=== PATIENT | male | born 1985 | race Caucasian/White ===

== ENCOUNTER 2018-07-15 01:04 | Observation (INO) | payer MEDICAID ==
[2018-07-15] MEDS ORDERED: SODIUM CHLORIDE FLUSH 0.9% 10 ML SYRINGE IVP PRN (03:22)
--- NOTE | 2018-07-15 04:01 | HISTORY & PHYSICAL EXAMINATION ---
Chief Complaint - Chief Complaint Chief Complaint: right lower extremity swelling pain and redness History of Present Illness - Admitted From Admitted From:: [facility] ED. Boyd - History Obtained From Records Reviewed: yes History obtained from: patient and chart - History of Present Illness HPI Comment/Other: Patient is a 33 y/o male who presented to the ED at [facility] with complain of leg swelling redness and pain. He reports that the house he was living in is infested with spiders. He woke up to ant crawling all over his legs 7 days ago. He brought one to the ED in a water bottle. He said he found it in his wound and that he has been bitten quite extensively by them. He decided to come in today because the swelling and redness got significantly worse and he was having a difficult time walking. He uses heroin and methamphetamine. He used to inject heroin in his legs but said he has not done so in 5 years. He smokes the drugs now and last did so 2 days ago. While in senior living, following an injection of heroin, he came down with a staph infection that resulted in an upon wound on the left leg which has increased in size and is now chronic. He had been referred to a wound center in [place] about 1 yr ago but did not follow up. He claims the wound on the right leg was a spread of infection from the left leg. He was positive for MRSA. In the ED today he has several round and raised areas he claims are bite sites. Some of the sites appear to have pustules. The entire leg is swollen and hyperemic and very tender to the slightest touch. The left leg also has round raise spots but the left leg is not tender to palpation. He reported a subjective fever but did not take his temperature at home and was afebrile in the ED. He was transferred to [facility] as a direct admit at the patient's request because he wants to be close to home. However he just recently move to the [place] and is yet to establish care with a provider on the [place]. He does not remember the name of his last PCP. he has not seem him in over 1 yr. He worked out of [facility] clinic in [place]. He is on methadone and reports taking 120mg daily. He gets it filled at [facility] in [place]. He drives to [place] regularly to get his medication refilled History - Past Medical History Cardiovascular: reports: Hypertension - Family & Social History Family History Comment/Other: mother: borderline DM. grand father: DM Living arrangement: At home - Substance History Use: Uses substance without health or social issues: Tobacco Abuse: Recurrent use of substance despite neg consequences: Amphetamine, Opioid Tobacco Details: Cigarettes (Smoked from 9 y/o to 16 y/o), Chewing Tobacco - POLST Patient has POLST: No POLST Status: Full Code Meds/Allgy - Allergies Allergies/Adverse Reactions: Allergies Allergy/AdvReac Type Severity Reaction Status Date / Time No Known Drug Allergies Allergy Verified 07/15/18 04:10 Review of Systems - Constitutional Constitutional: reports: Fever - Eyes Eyes: denies: Irritation, Amaurosis - Ears, Nose & Throat Ears, Nose & Throat: denies: Vertigo, Nasal pain, Nasal discharge, Sore throat - Cardiovascular Cariovascular: denies: Irregular heart rate, Palpitations, Chest pain, Edema, Lightheadedness, Exertional dyspnea - Respiratory Respiratory: denies: Cough, Wheezing, Snoring, Hemoptysis, SOB at rest, SOB with exertion - Gastrointestinal Gastrointestinal: denies: Abdominal pain, Abdominal distention, Constipation, Nausea, Vomiting - Musculoskeletal Musculoskeletal: denies: Muscle pain, Back pain, Muscle aches, Limited range of motion, Muscle weakness, Joint pain - Integumentary Integumentary: reports: Other (redness in lower ext swelling) - Neurological Neurological: denies: General weakness, Focal weakness, Headache, Dizziness - Psychiatric Psychiatric: denies: Depression, Anxiety - Endocrine Endocrine: denies: Polyuria, Polydypsia - Hematologic/Lymphatic Hematologic/Lymphatic: denies: Anemia, Bruising, Petechiae Prior Level of Functionality: Independent of activities of living Exam - Vital Signs Vital Signs: Vital Signs x48h Temp Pulse Resp BP Pulse Ox 07/15/18 03:00 36.3 C L 81 18 133/67 H 100 - Physical Exam General Appearance: positive: Alert, Moderate distress Eyes Bilateral: positive: Normal inspection, PERRL, EOMI, Conjunctivae nml, No scleral icterus ENT: positive: ENT inspection nml Neck: positive: Nml inspection, Thyroid nml, No JVD Respiratory: positive: Chest non-tender, No respiratory distress, Breath sounds nml. negative: Wheezes, Rales, Rhonchi Cardiovascular: positive: Regular rate & rhythm, No murmur, No gallop Abdomen: positive: Non-tender, No organomegaly, Nml bowel sounds, No distention. negative: Tenderness Back: positive: Nml inspection Skin: positive: Color nml, Warm, Other (open chronic wounds on bilateral lower ext raised red spots which look like postules) Extremities: positive: Pedal edema, Calf tenderness. negative: Non-tender Neurologic/Psychiatric: positive: Oriented x3, Motor nml, Sensation nml, Mood/affect nml Sepsis Event Note (H) - Evaluation Possible source of Sepsis: positive: Skin/soft tissue Conclusion/Plan - Problem List (1) Cellulitis of right lower extremity Conclusion/Plan: Hx of MRSA positive. Xray of bilateral lower extremity negative for fracture There was no fluctuance suggesting abscess Patient given vancomycin in the ED after blood culture drawn. Will continue. Pharmacy to dose. After about 2 day of IV antibiotic, may switch to oral antibiotics (2) Chronic wound of extremity Conclusion/Plan: Bilaterally Wound care consult placed Patient would need to follow with wound clinic outpatient (3) Hypertension Conclusion/Plan: Noncompliant Supposed to be on triamterene/HCTZ. Patient has not taken in over 1 yrs Will resume when verified (4) IVDU (intravenous drug user) Conclusion/Plan: Uses heroin and methamphetamine. Last used intravenously about 5 yrs ago Last smoked drugs 2 days ago On methadone, managed by [facility] in [place] Core Measures - Anticipated LOS I expect patient to be DC'd or transferred within 96 hours.: Yes - DVT/VTE - Prophylaxis VTE/DVT Device ordered at admit?: No Not Ordered - Medical Reason: Contraindicated (chronic open loer extremity wounds) VTE/DVT Prophylaxis med ordered at admit?: Yes
[2018-07-15] MEDS: ACETAMINOPHEN 325 MG TABLET PO PRN ×2 (04:13→21:33)
[2018-07-15] MEDS ORDERED: VANCOMYCIN PER PHARMACY 100 GM in SODIUM CHLORIDE 0.9% 250 ML IV SCH (05:00)
[2018-07-15 08:24] LABS: BASOPHILS # (AUTO) 0.1 10^3/uL (0.0-0.1); BASOPHILS % (AUTO) 0.9 %; EOSINOPHILS # (AUTO) 0.2 10^3/uL (0.0-0.7); EOSINOPHILS % (AUTO) 3.2 %; HGB - HEMOGLOBIN 10.2 g/dL (14.0-18.0); LYMPHOCYTES # (AUTO) 1.3 10^3/uL (1.5-3.5); LYMPHOCYTES % (AUTO) 22.6 %; MEAN CORPUSCULAR HEMOGLOBIN 25.5 pg (27.0-31.0); MEAN CORPUSCULAR HGB CONC 33.5 g/dL (32.0-36.0); MEAN CORPUSCULAR VOLUME 76.3 fL (80.0-94.0); MEAN PLATELET VOLUME 8.3 fL (7.4-11.4); MONOCYTES # (AUTO) 0.4 10^3/uL (0.0-1.0); MONOCYTES % (AUTO) 6.9 %; NEUTROPHILS # (AUTO) 3.8 10^3/uL (1.5-6.6); NEUTROPHILS % (AUTO) 66.4 %; PLT - PLATELET COUNT 215 10^3/uL (130-450); RED BLOOD COUNT 3.99 10^6/uL (4.70-6.10); RED CELL DISTRIBUTION WIDTH 16.5 % (12.0-15.0); WHITE BLOOD COUNT 5.7 x10^3/uL (4.8-10.8)
[2018-07-15 08:33] LABS: CALCIUM 8.1 mg/dL (8.5-10.3); CREATININE 0.7 mg/dL (0.6-1.2)
[2018-07-15] MEDS ORDERED: POTASSIUM CHLORIDE 20 MEQ TABLET PO ONE (08:45)
[2018-07-15] MEDS ORDERED: VANCOMYCIN INJ 2 GM in SODIUM CHLORIDE 0.9% 500 ML IV SCH (09:00)
[2018-07-15] MEDS ORDERED: SODIUM CHLORIDE FLUSH 0.9% 10 ML SYRINGE IVP SCH (09:00)
[2018-07-15 09:04] LABS: ALBUMIN 2.8 g/dL (3.2-5.5); BILIRUBIN,DIRECT 0.1 mg/dL (0.1-0.5); BILIRUBIN,TOTAL 0.6 mg/dL (0.2-1.0); MAGNESIUM 2.3 mg/dL (1.7-2.8)
[2018-07-15] MEDS: METHADONE 5 MG TABLET PO SCH (09:47)
[2018-07-15] MEDS: TRIAMT/HCTZ 37.5 MG/25 MG CAPSULE PO SCH (09:50)
[2018-07-15] MEDS: ENOXAPARIN 40 MG/0.4 ML SYRINGE SUBQ SCH (09:51)
[2018-07-15] MEDS: POLYETHYLENE GLYCOL 3350 17 GM PACKET PO SCH (09:51)
[2018-07-15] MEDS ORDERED: LIDOCAINE TOPICAL 4% 160 MG/4 ML KIT TOP PRN ×2 (11:00→13:43)
--- NOTE | 2018-07-15 12:23 | PROVIDER PROGRESS NOTE ---
Assessment/Plan - Problem List (1) Cellulitis of right lower extremity Assessment/Plan: Pt was put on iv Vanco, it is unclear if [facility] did blood or wound cultures. He has a Hx of MRS (+) status. Will continue po Vanco. Await Wound Clinic nurse to debride and give recommendations. (2) Chronic wound of extremity Assessment/Plan: He has bilateral leg wounds of different types and stages. Awaiting Wound Clinic nurse to see. (3) Leg edema Assessment/Plan: He has not taken his Triamptere for a year. Will resume Triampterene, especially with bilateral leg edema. (4) History of intravenous drug abuse Assessment/Plan: Pt was put on his usual dose of po Methadone, after it was confirmed and reconciled by our Pharmacist. (5) Methamphetamine use Assessment/Plan: Pt admits to Meth and Heroin smoking. Told to stop, needs drug rehab resources, I told Hydrodynamicist. (6) Hypokalemia Assessment/Plan: Replace po. Follow daily BMP. (7) Anemia Assessment/Plan: Will check B12, Folate, Iron panel and guiac stool. Replace if low. - Current Meds Current Meds: Current Medications Generic Name Dose Route Start Last Admin Trade Name Freq PRN Reason Stop Dose Admin Acetaminophen 650 mg 07/15/18 03:22 07/15/18 04:13 Tylenol PO 650 mg Q4HR PRN Administration Pain 1 to 4 Enoxaparin Sodium 40 mg 07/15/18 09:00 07/15/18 09:51 Lovenox SUBQ 40 mg DAILY EFE Administration Methadone HCl 120 mg 07/15/18 09:00 07/15/18 09:47 PO 120 mg DAILY EFE Administration Polyethylene Glycol 17 gm 07/15/18 09:00 07/15/18 09:51 Miralax PO 17 gm DAILY EFE Administration Triamterene/HCTZ 1 cap 07/15/18 09:00 07/15/18 09:50 Dyazide PO 1 cap DAILY EFE Administration - Lab Result Fish Bone Diagrams: 07/15/18 08:10 07/15/18 08:10 - Additional Planning My Orders: My Active Orders 07/15/18 CUL, MRSA SCREEN [RM] Urgent 07/15/18 09:00 Methadone 120 mg PO DAILY Triamterene/Hdyrochlor 37.5/25 [Dyazide] 1 cap PO DAILY 07/15/18 11:00 Lidocaine Topical 4% [Pkooed-V-Cdd Kit 4%] 1 mg TOP Q2H PRN 07/15/18 12:30 Vancomycin [Vancocin] 500 mg PO ONCE ONE 07/15/18 18:00 Vancomycin [Vancocin] 500 mg PO BID Subjective - Subjective Nursing Reports: Other (iv fell put after 1g of Vancomycin infused (half of the planned dose).) Objective Vital Signs: Vital Signs - 24 hr 07/15/18 07/15/18 03:00 07:38 Temperature 36.3 C L 36.6 C Heart Rate [ 81 72 Monitoring electrodes] Respiratory 18 18 Rate Blood Pressure 133/67 H 120/54 L [Right Brachial artery] O2 Saturation 100 100 Oxygen O2 Source Room air I&O (Last 24 Hrs): Intake and Output Totals x24h 07/13/18 07/14/18 07/15/18 23:59 23:59 23:59 Intake Total 1235 Output Total 2100 Balance -865 - Results Results: Laboratory Results WBC 5.7 x10^3/uL (4.8-10.8) 07/15/18 08:10 RBC 3.99 10^6/uL (4.70-6.10) L 07/15/18 08:10 Hgb 10.2 g/dL (14.0-18.0) L 07/15/18 08:10 Hct 30.4 % (42.0-52.0) L 07/15/18 08:10 MCV 76.3 fL (80.0-94.0) L 07/15/18 08:10 MCH 25.5 pg (27.0-31.0) L 07/15/18 08:10 MCHC 33.5 g/dL (32.0-36.0) 07/15/18 08:10 RDW 16.5 % (12.0-15.0) H 07/15/18 08:10 Plt Count 215 10^3/uL (130-450) 07/15/18 08:10 MPV 8.3 fL (7.4-11.4) 07/15/18 08:10 Neut # (Auto) 3.8 10^3/uL (1.5-6.6) 07/15/18 08:10 Lymph # (Auto) 1.3 10^3/uL (1.5-3.5) L 07/15/18 08:10 Mineral # (Auto) 0.4 10^3/uL (0.0-1.0) 07/15/18 08:10 Eos # (Auto) 0.2 10^3/uL (0.0-0.7) 07/15/18 08:10 Baso # (Auto) 0.1 10^3/uL (0.0-0.1) 07/15/18 08:10 Absolute Nucleated RBC 0.00 x10^3/uL 07/15/18 08:10 Nucleated RBC % 0.0 /100WBC 07/15/18 08:10 Sodium 138 mmol/L (135-145) 07/15/18 08:10 Potassium 3.4 mmol/L (3.5-5.0) L 07/15/18 08:10 Chloride 101 mmol/L (101-111) 07/15/18 08:10 Carbon Dioxide 29 mmol/L (21-32) 07/15/18 08:10 Anion Gap 8.0 (6-13) 07/15/18 08:10 BUN 10 mg/dL (6-20) 07/15/18 08:10 Creatinine 0.7 mg/dL (0.6-1.2) 07/15/18 08:10 Estimated GFR (MDRD) 129 (>89) 07/15/18 08:10 Glucose 119 mg/dL (70-100) H 07/15/18 08:10 Calcium 8.1 mg/dL (8.5-10.3) L 07/15/18 08:10 Magnesium 2.3 mg/dL (1.7-2.8) 07/15/18 08:10 Total Bilirubin 0.6 mg/dL (0.2-1.0) 07/15/18 08:10 Direct Bilirubin 0.1 mg/dL (0.1-0.5) 07/15/18 08:10 AST 29 IU/L (10-42) 07/15/18 08:10 ALT 27 IU/L (10-60) 07/15/18 08:10 Alkaline Phosphatase 93 IU/L (42-121) 07/15/18 08:10 Total Protein 7.0 g/dL (6.7-8.2) 07/15/18 08:10 Albumin 2.8 g/dL (3.2-5.5) L 07/15/18 08:10 Globulin 4.2 g/dL (2.1-4.2) 07/15/18 08:10 Sepsis Event Note (H) - Evaluation Possible source of Sepsis: positive: Skin/soft tissue
[2018-07-15] MEDS ORDERED: VANCOMYCIN 125 MG CAPSULE PO ONE (12:30)
[2018-07-15] MEDS ORDERED: VANCOMYCIN INJ 1.75 GM in SODIUM CHLORIDE 0.9% 500 ML IV SCH (18:00)
[2018-07-15] MEDS ORDERED: VANCOMYCIN 125 MG CAPSULE PO SCH (18:00)
[2018-07-15] MEDS: SULFAMETH/TRIMETH DS 800/160 MG TABLET PO SCH (21:33)
[2018-07-16] MEDS: ACETAMINOPHEN 325 MG TABLET PO PRN (01:38)
[2018-07-16] MEDS: METHADONE 5 MG TABLET PO SCH (10:22)
[2018-07-16] MEDS: SULFAMETH/TRIMETH DS 800/160 MG TABLET PO SCH (10:25)
[2018-07-16] MEDS: TRIAMT/HCTZ 37.5 MG/25 MG CAPSULE PO SCH (10:26)
[2018-07-16] MEDS: ENOXAPARIN 40 MG/0.4 ML SYRINGE SUBQ SCH (10:26)
[2018-07-16] MEDS: POLYETHYLENE GLYCOL 3350 17 GM PACKET PO SCH (10:26)
--- NOTE | 2018-07-16 11:11 | Discharge Plan ---
Discharge Plan Disposition: Home, Self Care Condition: Stable Prescriptions: Gauze Bandage [Rolled Gauze] 1 each TP DAILY #30 bandage Gauze Bandage [Gauze Pad] 1 each TP DAILY #30 bandage Methadone HCl [Dolophine HCl] 120 mg PO DAILY #96 tablet Sulfamethox/Trimeth 800/160 [Bactrim Ds] 2 tab PO BID #56 tablet Triamterene/Hydrochlorothiazid [Triamterene-Hctz 37.5-25 mg Cp] 1 each PO DAILY #30 capsule Diet: Regular Activity Restrictions: Activity as Tolerated Shower Restrictions: No Driving Restrictions: No Assistance Devices: Cane Instruction Topics: Addiction Drug Abuse Tx, ED Bite Spider Non Poisonous, ED Ulcer Venous Leg Additional Instructions or Follow Up instructions: You were here for treatment of your leg wounds. A new prescription for antibiotics has been ordered for you. Take the antibiotics until they are finished. Keep the wounds clean and dry, do NOT pick at them. Please go to a follow-up appointment with the [facility] here: call to schedule an appointment , ext [phone]. Resume your pre-hospital medications. Several weeks supply was ordered for you. Refills will need to be obtained from your prior Primary Care Provider, or a new Provider that you establish with on [facility]. Potential new providers offices were given to you from our staff. If you have new or worsening symptoms, call your PCP or come to the ER. Follow-Up Care: [facility] - Wound/Ostomy No Smoking: If you smoke, Please STOP! Call for help.
--- NOTE | 2018-07-16 11:35 | PROVIDER PROGRESS NOTE ---
Assessment/Plan - Problem List (1) Cellulitis of right lower extremity Assessment/Plan: Pt feels much better, less pain, swelling and redness of legs. Will [facility] home today and he was told to have F/U at the [facility] [place] [facility] here. Finish a course of po antibiotics, Bactrim DS was started yesterday. (2) Chronic wound of extremity Assessment/Plan: He was seen by RN from [facility] who did debridement, wound care and applied dressings. (3) Leg edema Assessment/Plan: His Triamterene was restarted and a new script will be ordered at [facility]. (4) History of intravenous drug abuse Assessment/Plan: He was instructed not to pick at his leg wounds, which are a result of old iv drug injection sites, as well as bug bites. His Methadone will need refills from a provider or he can go to the old provider. [After the patient left, a Pharmacist from [facility] called me that the paper prescription had the number to the ER on the letterhead and that there was no Diagnosis listed on the papar scripts for Methadone, and therefore it was not per regulation, per him. I told him to kelly the order and shred the prescription and the patient will have to get it from his prior Methadone ordering provider]. (5) Methamphetamine use Assessment/Plan: He now has a Hx of smoking his drugs. (6) Hypokalemia Assessment/Plan: Replaced. (7) Anemia Assessment/Plan: This will need outpatient evaluation and management. - Current Meds Current Meds: Current Medications Generic Name Dose Route Start Last Admin Trade Name Freq PRN Reason Stop Dose Admin Acetaminophen 650 mg 07/15/18 03:22 07/16/18 01:38 Tylenol PO 650 mg Q4HR PRN Administration Pain 1 to 4 Enoxaparin Sodium 40 mg 07/15/18 09:00 07/16/18 10:26 Lovenox SUBQ 40 mg DAILY EFE Administration Methadone HCl 120 mg 07/15/18 09:00 07/16/18 10:22 PO 120 mg DAILY EFE Administration Polyethylene Glycol 17 gm 07/15/18 09:00 07/16/18 10:26 Miralax PO 17 gm DAILY EFE Administration Triamterene/HCTZ 1 cap 07/15/18 09:00 07/16/18 10:26 Dyazide PO 1 cap DAILY EFE Administration Trimethoprim/Sulfamethoxazole 2 tab 07/15/18 21:00 07/16/18 10:25 Bactrim Ds 800/160 PO 2 tab BID EFE Administration - Lab Result Fish Bone Diagrams: 07/15/18 08:10 07/15/18 08:10 - Other Other Results/Comments: CONDITION AT DISCHARGE: Stable - Additional Planning My Orders: My Active Orders 07/15/18 13:43 Lidocaine Topical 4% [Wcqoth-E-Ruu Kit 4%] 0 mg TOP Q2H PRN 07/15/18 21:00 Sulfamethox/Trimeth 800/160 [Bactrim Ds 800/160] 2 tab PO BID 07/16/18 11:30 Discharge [RC] .ONCE Initiate Discharge Checklist [RC] .ONCE Time Spent: 15-30 minutes Subjective - Subjective Patient Reports: Feeling Better, Resting Comfortably Objective Vital Signs: Vital Signs - 24 hr 07/15/18 07/15/18 07/16/18 16:26 20:41 00:00 Temperature 36.8 C 37.4 C 36.8 C Heart Rate [ 80 80 70 Monitoring electrodes] Respiratory 18 18 18 Rate Blood Pressure 139/83 H 131/72 H 133/70 H [Right Brachial artery] O2 Saturation 97 96 97 07/16/18 07/16/18 05:00 07:37 Temperature 36.7 C 36.7 C Heart Rate [ 67 82 Monitoring electrodes] Respiratory 16 18 Rate Blood Pressure 132/78 H 144/69 H [Right Brachial artery] O2 Saturation 98 99 Oxygen O2 Source Room air I&O (Last 24 Hrs): Intake and Output Totals x24h 07/14/18 07/15/18 07/16/18 23:59 23:59 23:59 Intake Total 2395 610 Output Total 2975 1925 Balance -580 -1315 General: Alert, Oriented x3 HEENT: Mucous membr. moist/pink Neck: Supple Neuro: Non Focal Cardiovascular: Regular rate Respiratory: No respiratory distress Abdomen: Soft Extremities: Other (1+ edema to groin bilate, both legs in gauze bandages from heels to groin) - Results Results: Laboratory Results WBC 5.7 x10^3/uL (4.8-10.8) 07/15/18 08:10 RBC 3.99 10^6/uL (4.70-6.10) L 07/15/18 08:10 Hgb 10.2 g/dL (14.0-18.0) L 07/15/18 08:10 Hct 30.4 % (42.0-52.0) L 07/15/18 08:10 MCV 76.3 fL (80.0-94.0) L 07/15/18 08:10 MCH 25.5 pg (27.0-31.0) L 07/15/18 08:10 MCHC 33.5 g/dL (32.0-36.0) 07/15/18 08:10 RDW 16.5 % (12.0-15.0) H 07/15/18 08:10 Plt Count 215 10^3/uL (130-450) 07/15/18 08:10 MPV 8.3 fL (7.4-11.4) 07/15/18 08:10 Neut # (Auto) 3.8 10^3/uL (1.5-6.6) 07/15/18 08:10 Lymph # (Auto) 1.3 10^3/uL (1.5-3.5) L 07/15/18 08:10 Eddy # (Auto) 0.4 10^3/uL (0.0-1.0) 07/15/18 08:10 Eos # (Auto) 0.2 10^3/uL (0.0-0.7) 07/15/18 08:10 Baso # (Auto) 0.1 10^3/uL (0.0-0.1) 07/15/18 08:10 Absolute Nucleated RBC 0.00 x10^3/uL 07/15/18 08:10 Nucleated RBC % 0.0 /100WBC 07/15/18 08:10 Sodium 138 mmol/L (135-145) 07/15/18 08:10 Potassium 3.4 mmol/L (3.5-5.0) L 07/15/18 08:10 Chloride 101 mmol/L (101-111) 07/15/18 08:10 Carbon Dioxide 29 mmol/L (21-32) 07/15/18 08:10 Anion Gap 8.0 (6-13) 07/15/18 08:10 BUN 10 mg/dL (6-20) 07/15/18 08:10 Creatinine 0.7 mg/dL (0.6-1.2) 07/15/18 08:10 Estimated GFR (MDRD) 129 (>89) 07/15/18 08:10 Glucose 119 mg/dL (70-100) H 07/15/18 08:10 Calcium 8.1 mg/dL (8.5-10.3) L 07/15/18 08:10 Magnesium 2.3 mg/dL (1.7-2.8) 07/15/18 08:10 Total Bilirubin 0.6 mg/dL (0.2-1.0) 07/15/18 08:10 Direct Bilirubin 0.1 mg/dL (0.1-0.5) 07/15/18 08:10 AST 29 IU/L (10-42) 07/15/18 08:10 ALT 27 IU/L (10-60) 07/15/18 08:10 Alkaline Phosphatase 93 IU/L (42-121) 07/15/18 08:10 Total Protein 7.0 g/dL (6.7-8.2) 07/15/18 08:10 Albumin 2.8 g/dL (3.2-5.5) L 07/15/18 08:10 Globulin 4.2 g/dL (2.1-4.2) 07/15/18 08:10 Sepsis Event Note (H) - Evaluation Possible source of Sepsis: positive: Skin/soft tissue
[2018-07-16 12:28] VITALS: BP 145/80
== END 2018-07-16 13:26 | disposition home or self-care (01) ==
LOC: OBS 03:23
PROVIDERS: ADMIT Internal Medicine; ATTEND Internal Medicine
DX: S81.8 Open wound of lower leg (principal); L03.115 Cellulitis of right lower limb; W46.0XXS Contact with hypodermic needle, sequela; S80.861S Insect bite (nonvenomous), right lower leg, sequela; W57.XXXS Bitten or stung by nonvenomous insect and other nonvenomous arthropods, sequela; S81.842A Puncture wound with foreign body, left lower leg, initial encounter; W46.0XXA Contact with hypodermic needle, initial encounter; S80.862A Insect bite (nonvenomous), left lower leg, initial encounter; W57.XXXA Bitten or stung by nonvenomous insect and other nonvenomous arthropods, initial encounter; I10 Essential (primary) hypertension; F11.10 Opioid abuse, uncomplicated; F15.10 Other stimulant abuse, uncomplicated; E87.6 Hypokalemia; D64.9 Anemia, unspecified; R60.0 Localized edema; Z86.14 Personal history of Methicillin resistant Staphylococcus aureus infection; Z87.891 Personal history of nicotine dependence
CPT/HCPCS: 36415; 80048; 80076; 83735; 85025; 96365; 96366; 96372; 97597; A9270; G0378; G0379; J1650; J3370

== ENCOUNTER 2019-02-17 00:27 | Emergency (ER) | payer OTHER, MEDICAID ==
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
[2019-02-17] MEDS ORDERED: DOXYCYCLINE 100 MG TABLET PO STA (01:04)
[2019-02-17] MEDS ORDERED: NAPROXEN 250 MG TABLET PO STA (01:04)
[2019-02-17] MEDS ORDERED: oxyCODONE 5 MG TABLET PO STA (01:04)
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
[2019-02-17] MEDS ORDERED: MUPIROCIN 2% OINT 1 GM TOP STA (02:00)
[2019-02-17 03:17] VITALS: BP 159/96
== END 2019-02-17 03:15 | disposition home or self-care (01) ==
LOC: ED 00:27
DX: S16.1XXA Strain of muscle, fascia and tendon at neck level, initial encounter (principal); R51 Headache; V43.53XA Car driver injured in collision with pick-up truck in traffic accident, initial encounter; W22.11XA Striking against or struck by driver side automobile airbag, initial encounter; L08.9 Local infection of the skin and subcutaneous tissue, unspecified; L97.229 Non-pressure chronic ulcer of left calf with unspecified severity; F11.11 Opioid abuse, in remission; I10 Essential (primary) hypertension; F17.200 Nicotine dependence, unspecified, uncomplicated
CPT/HCPCS: 70450; 72125; 99284; A9270

== ENCOUNTER 2019-07-04 17:02 | Inpatient (IN) | payer MEDICAID ==
--- NOTE | 2019-07-04 17:51 | ED Physician Documentation ---
History of Present Illness - Stated complaint Stated Complaint: L LEG WOUND - Chief complaint Chief Complaint: Ext Problem - History obtained from History obtained from: Patient, Family - History of Present Illness Timing: Chronic Pain level max: 10 Pain level now: 10 - Additonal information Additional information: 34-year-old male presents to the emergency department with back bilateral lower extremity wounds, he states that the left leg wound has become larger with surrounding erythema and redness going up his leg. He has a history of heroin and methamphetamine abuse. He is currently on daily methadone. Subjective fevers at home. No vomiting. He states that he accidentally hit his thigh with an ax approximately 10 days ago and is concerned he may have internal bleeding from this. He has no bruising. He does not currently have a primary care doctor, has not been on antibiotics and is not enrolled in wound care. He states his tetanus shot is up-to-date. Nothing makes it better or worse Review of Systems Ten Systems: 10 systems reviewed and negative Constitutional: reports: Fever (Subjective). denies: Chills Nose: denies: Rhinorrhea / runny nose, Congestion Cardiac: denies: Chest pain / pressure Respiratory: denies: Cough GI: denies: Vomiting Skin: denies: Rash Musculoskeletal: denies: Neck pain, Back pain Neurologic: denies: Headache PD PAST MEDICAL HISTORY - Past Medical History Cardiovascular: Hypertension Respiratory: None Neuro: None Endocrine/Autoimmune: None GI: None : None HEENT: None Psych: Anxiety, Post traumatic stress disorder, Claustrophobia Musculoskeletal: None Derm: Other - Past Surgical History Past Surgical History: No - Present Medications Home Medications: Ambulatory Orders Medication Instructions Recorded Confirmed Methadone HCl [Dolophine HCl] 120 mg PO DAILY #96 tablet 07/16/18 07/04/19 Triamterene/Hydrochlorothiazid 1 each PO DAILY #30 capsule 07/16/18 07/04/19 [Triamterene-Hctz 37.5-25 mg Cp] - Allergies Allergies/Adverse Reactions: Allergies Allergy/AdvReac Type Severity Reaction Status Date / Time bacitracin AdvReac Unknown Verified 07/04/19 17:22 [From Neosporin ([id number])] neomycin AdvReac Unknown Verified 07/04/19 17:22 [From Neosporin ([id number]-[id number])] polymyxin B AdvReac Unknown Verified 07/04/19 17:22 [From Neosporin ([id number])] - Social History Does the pt smoke?: Yes Smoking Status: Current every day smoker Does the pt drink ETOH?: No Does the pt have substance abuse?: Yes - Immunizations Immunizations are current?: No - POLST Patient has POLST: No POLST Status: Full Code PD ED PE NORMAL - Vitals Vital signs reviewed: Yes - General General: Alert and oriented X 3, No acute distress - HEENT HEENT: Moist mucous membranes, Pharynx benign - Neck Neck: Supple, no meningeal sign - Cardiac Cardiac: RRR - Respiratory Respiratory: No respiratory distress, Clear bilaterally - Abdomen Abdomen: Soft, Non tender, Non distended - Back Back: No spinal TTP - Derm Derm: Warm and dry - Extremities Extremities: Other (Right lower extremity with chronic wounds, no evidence of secondary infection. Left lower extremity has multiple open sores, a large open wound approximately 8 x 3 cm and surrounding erythema. There are patches of erythema up and down the leg, including the dorsum of the foot with swelling. No fluctuance. No drainable abscess.) - Neuro Neuro: Alert and oriented X 3 Results - Vitals Vitals: Vital Signs - 24 hr 07/04/19 07/04/19 07/04/19 17:23 17:43 19:32 Temperature 37.3 C 37.4 C 36.5 C Heart Rate 109 H 103 H 78 Respiratory 18 18 18 Rate Blood Pressure 193/95 H 142/94 H 132/78 H O2 Saturation 97 99 100 07/04/19 20:19 Temperature Heart Rate 87 Respiratory 16 Rate Blood Pressure 136/85 H O2 Saturation 100 Oxygen O2 Source Room air - Labs Labs: Laboratory Tests 07/04/19 07/04/19 07/04/19 18:20 18:20 18:20 WBC 6.5 RBC 4.85 Hgb 12.5 L Hct 38.6 L MCV 79.6 L MCH 25.8 L MCHC 32.4 RDW 15.4 H Plt Count 174 MPV 10.5 Neut # (Auto) 4.7 Lymph # (Auto) 1.1 L [place] # (Auto) 0.6 Eos # (Auto) 0.1 Baso # (Auto) 0.0 Absolute Nucleated RBC 0.00 Nucleated RBC % 0.0 ESR 77 H Sodium 137 Potassium 2.9 L Chloride 95 L Carbon Dioxide 33 H Anion Gap 9.0 BUN 13 Creatinine 0.9 Estimated GFR (MDRD) 96 Glucose 130 H Calcium 8.4 L Total Bilirubin 0.5 AST 30 ALT 31 Alkaline Phosphatase 95 Total Creatine Kinase C-Reactive Protein 22.3 H Total Protein 7.5 Albumin 3.1 L Globulin 4.3 H Albumin/Globulin Ratio 0.7 L Lipase 25 07/04/19 18:20 WBC RBC Hgb Hct MCV MCH MCHC RDW Plt Count MPV Neut # (Auto) Lymph # (Auto) [place] # (Auto) Eos # (Auto) Baso # (Auto) Absolute Nucleated RBC Nucleated RBC % ESR Sodium Potassium Chloride Carbon Dioxide Anion Gap BUN Creatinine Estimated GFR (MDRD) Glucose Calcium Total Bilirubin AST ALT Alkaline Phosphatase Total Creatine Kinase 150 C-Reactive Protein Total Protein Albumin Globulin Albumin/Globulin Ratio Lipase PD MEDICAL DECISION MAKING - ED course Complexity details: reviewed results, re-evaluated patient, considered differential, d/w patient, d/w international travel consultant ED course: Patient with a significant cellulitis to the left lower extremity with significant open wounds. We will admit the patient for further care. Given IV vancomycin and Unasyn here. I placed his IV under ultrasound guidance. He does not appear septic at this point. Discussed the case with Dr. Avina, hospitalist who accepts This document was made in part using voice recognition software. While efforts are made to proofread this document, sound alike and grammatical errors may occur. Departure - Departure Disposition: 66 [facility] DC/Xfer Clinical Impression: Open wound, Methamphetamine use, History of intravenous drug abuse, Chronic wound of extremity, Wound infection Cellulitis Qualifiers: Site of cellulitis: unspecified site Qualified Code(s): L03.90 - Cellulitis, unspecified Condition: Stable Discharge Date/Time: 07/04/19 21:15
[2019-07-04 18:33] LABS: BASOPHILS % (AUTO) 0.6 %; EOSINOPHILS # (AUTO) 0.1 10^3/uL (0.0-0.7); EOSINOPHILS % (AUTO) 0.9 %; HGB - HEMOGLOBIN 12.5 g/dL (14.0-18.0); LYMPHOCYTES # (AUTO) 1.1 10^3/uL (1.5-3.5); LYMPHOCYTES % (AUTO) 17.1 %; MEAN CORPUSCULAR HEMOGLOBIN 25.8 pg (27.0-31.0); MEAN CORPUSCULAR HGB CONC 32.4 g/dL (32.0-36.0); MEAN CORPUSCULAR VOLUME 79.6 fL (80.0-94.0); MEAN PLATELET VOLUME 10.5 fL (7.4-11.4); MONOCYTES # (AUTO) 0.6 10^3/uL (0.0-1.0); MONOCYTES % (AUTO) 8.5 %; NEUTROPHILS # (AUTO) 4.7 10^3/uL (1.5-6.6); NEUTROPHILS % (AUTO) 72.3 %; PLT - PLATELET COUNT 174 10^3/uL (130-450); RED BLOOD COUNT 4.85 10^6/uL (4.70-6.10); RED CELL DISTRIBUTION WIDTH 15.4 % (12.0-15.0); WHITE BLOOD COUNT 6.5 x10^3/uL (4.8-10.8)
[2019-07-04 19:02] LABS: ALBUMIN 3.1 g/dL (3.2-5.5); ALBUMIN/GLOBULIN RATIO 0.7 (1.0-2.2); BILIRUBIN,TOTAL 0.5 mg/dL (0.2-1.0); CALCIUM 8.4 mg/dL (8.5-10.3); CREATININE 0.9 mg/dL (0.6-1.2); CRP - C-REACTIVE PROTEIN 22.3 mg/dL (0-1.0); TOTAL PROTEIN 7.5 g/dL (6.7-8.2)
[2019-07-04] MEDS ORDERED: VANCOMYCIN INJ 2 GM in SODIUM CHLORIDE 0.9% 500 ML IV STA (19:10)
[2019-07-04] MEDS ORDERED: AMPICILLIN/SULBACTAM 3 GM in SODIUM CHLORIDE 0.9% MINIBAG 100 ML IV STA (19:10)
[2019-07-04] MEDS ORDERED: POTASSIUM CHLORIDE 20 MEQ TABLET PO STA ×2 (19:10→22:52)
[2019-07-04] MEDS ORDERED: SODIUM CHLORIDE 0.9% 1,000 ML IV ONE (19:11)
[2019-07-04] MEDS ORDERED: SODIUM CHLORIDE FLUSH 0.9% 10 ML SYRINGE IVP PRN (20:28)
[2019-07-04] MEDS ORDERED: ACETAMINOPHEN 325 MG TABLET PO PRN (20:28)
[2019-07-04] MEDS ORDERED: diphenhydrAMINE INJ 50 MG/ML VIAL IVP STA (20:38)
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
[2019-07-04] MEDS ORDERED: SODIUM CHLORIDE 0.9% 1,000 ML IV SCH (21:00)
[2019-07-04] MEDS ORDERED: VANCOMYCIN PER PHARMACY 100 GM in SODIUM CHLORIDE 0.9% 250 ML IV SCH (21:00)
[2019-07-04] MEDS ORDERED: IOVERSOL 320 100 ML VIAL IVP ONE ×2 (21:10→23:17)
[2019-07-04] MEDS: SODIUM CHLORIDE 0.9% 1,000 ML IV SCH (22:45)
[2019-07-04 23:23] LABS: MUDS CUTOFF CONCENTRATIONS CUTOFF CONC BELOW:
[2019-07-04 23:34] LABS: AMPHETAMINE SCREEN,URINE POSITIVE (NEGATIVE); BENZODIAZEPINES SCREEN, URINE NEGATIVE (NEGATIVE); COCAINE SCREEN URINE NEGATIVE (NEGATIVE); METHADONE SCREEN, URINE POSITIVE (NEGATIVE); METHAMPHETAMINES SCREEN, URINE POSITIVE (NEGATIVE); OPIATE SCREEN, URINE POSITIVE (NEGATIVE); OXYCODONE SCREEN, URINE NEGATIVE (NEGATIVE); PROPOXYPHENE SCREEN, URINE NEGATIVE (NEGATIVE); TRICYCLIC ANTIDEPRESSANT,URINE NEGATIVE (NEGATIVE)
--- NOTE | 2019-07-04 23:55 | CT Report ---
Reason: swollen, red, painful. ?abscess Procedure Date: 07/04/2019 Accession Number: [id number] / [id number] Procedure: CT - LOWER EXTREMITY W - LT CPT Code: Final Report FULL RESULT: EXAM: LEFT LOWER EXTREMITY CT WITH CONTRAST EXAM DATE: 07/04/2019 11:03 PM. CLINICAL HISTORY: Swollen, red, painful left leg. Question abscess. COMPARISON: None. TECHNIQUE: Thin-section axial images were acquired of the left lower extremity after administration of intravenous contrast. IV contrast: Optiray 320. Post-processing: Coronal and sagittal reformats. Other: None. In accordance with CT protocol optimization, one or more of the following dose reduction techniques were utilized for this exam: automated exposure control, adjustment of mA and/or KV based on patient size, or use of iterative reconstructive technique. FINDINGS: Bones: No fracture or bone lesion. Joints: The visualized joint spaces are normal. Soft tissues: Subcutaneous edema and skin thickening in the lower leg particularly. No discrete abscess. No tracking soft tissue gas or gross deep space involvement. No vascular thrombosis seen. IMPRESSION: Findings consistent with left leg cellulitis but without abscess or other complication by CT. RADIA
[2019-07-05] MEDS ORDERED: diphenhydrAMINE 25 MG CAPSULE PO PRN (00:01)
[2019-07-05] MEDS ORDERED: PIPERACILLIN/TAZOBACTAM 3.375 GM in SODIUM CHLORIDE 0.9% MINIBAG 100 ML IV ONE (01:30)
[2019-07-05] MEDS: oxyCODONE 5 MG TABLET PO PRN ×4 (01:32→23:53)
[2019-07-05] MEDS: SODIUM CHLORIDE FLUSH 0.9% 10 ML SYRINGE IVP SCH ×4 (01:39→23:53)
[2019-07-05] MEDS ORDERED: WATER FOR INJECTION,STERILE 40 ML ONE (03:06)
[2019-07-05] MEDS ORDERED: VANCOMYCIN INJ 1.5 GM in SODIUM CHLORIDE 0.9% 500 ML IV SCH (04:00)
[2019-07-05] MEDS: PIPERACILLIN/TAZOBACTAM 3.375 GM in SODIUM CHLORIDE 0.9% MINIBAG 100 ML IV SCH ×3 (05:51→21:29)
[2019-07-05] MEDS: ENOXAPARIN 40 MG/0.4 ML SYRINGE SUBQ SCH (08:16)
[2019-07-05] MEDS: NICOTINE 14 MG PATCH TOP SCH (08:16)
[2019-07-05] MEDS: SODIUM CHLORIDE 0.9% 1,000 ML IV SCH ×2 (08:16→21:40)
[2019-07-05] MEDS: METHADONE 5 MG TABLET PO SCH (11:17)
[2019-07-05] MEDS ORDERED: VANCOMYCIN 1 GM VIAL ONE (12:19)
[2019-07-05] MEDS: VANCOMYCIN INJ 1.5 GM in SODIUM CHLORIDE 0.9% 500 ML IV SCH ×2 (13:05→19:15)
--- NOTE | 2019-07-05 14:12 | PHARMACY PROGRESS NOTE ---
- Best Possible Medication History Admit Date and Time: 07/04/192027 Processed by: Nursing Medication History completed: Yes As the person ultimately responsible for medication therapy, providers are able to order a medication from an existing home medication list in [facility] via the "Reconcile Routine" prior to Confirmation of that medication by intelligence support officer. Such practice is discouraged except when the physician, in their clinical judgment, deems that a medical need exists for a medication without regard to previous use.
[2019-07-05] MEDS: MULTIVITAMIN W/MINERALS TABLET PO SCH (15:27)
--- NOTE | 2019-07-05 15:28 | PROVIDER PROGRESS NOTE ---
Subjective - Prog Note Date Prog Note Date: 07/05/19 Prog Note Time: 15:27 - Subjective Pt reports feeling: Improved Subjective: Flaco complains about not having any veins, so he has been refusing labs today. He agrees to stay in the hospital to get the IV treatment for his leg wound. Wound care will come for their consult tomorrow 07/05, since they do not work on Mondays. We have wrapped the LLE after cleaning with NS, then applied vasoline gauze, with a gauze wrap. Flaco notes his pain is controlled. Current Medications - Current Medications Current Medications: Active Medications: Acetaminophen (Tylenol) 650 mg PO Q4HR PRN Ascorbic Acid (Vitamin C) 500 mg PO DAILY [facility] Diphenhydramine HCl (Benadryl) 25 mg PO Q4HR PRN Enoxaparin Sodium (Lovenox) 40 mg SUBQ DAILY [facility] Sodium Chloride (Normal Saline 0.9%) 1,000 mls @ 100 mls/hr IV .Q10H [facility] Piperacillin Sod/Tazobactam 100 mls @ 25 mls/hr IV Q8H [facility] Vancomycin HCl 1.5 gm/ Sodium (Chloride) 500 mls @ 250 mls/hr IV Q8H [facility] Methadone HCl 105 mg PO DAILY [facility] Multivitamins/Minerals (Theragran M) 1 tab PO DAILYWM [facility] Nicotine (Nicoderm) 1 patch TOP DAILY [facility] Oxycodone HCl (Roxicodone) 5 mg PO Q4HR PRN Zinc Sulfate 220 mg PO DAILY [facility] HOME meds: methadone 120 mg daily PO Triamterene-HCTZ 37.5/25 mg PO daily Objective - Vital Signs/Intake & Output Reviewed Vital Signs: Yes Vital Signs: Vital Signs x48h Temp Pulse Resp BP Pulse Ox 07/05/19 08:00 36.2 C L 86 20 148/81 H 98 Intake & Output: Intake & Output 07/02/19 07/03/19 07/04/19 07/05/19 23:59 23:59 23:59 23:59 Intake Total 046.462 2508.834 Output Total 1200 1425 Balance -184.442 8643.834 - Objective General Appearance: positive: No acute distress, Lethargic Eyes Bilateral: positive: No lid inflammation ENT: positive: No signs of dehydration, Pharyngeal erythema Neck: positive: No JVD, Trachea midline Respiratory: positive: Chest non-tender, No respiratory distress, Breath sounds nml Cardiovascular: positive: Regular rate & rhythm, No gallop, Systolic murmur Abdomen: positive: Tenderness, Guarding, Abnml bowel sounds Skin: positive: No rash, Warm, Dry, Skin rash, Puncture wound, Embolic lesions Extremities: positive: Pedal edema, Joint swelling, Other (pitting edema to LLE, redness, thigh rash) Neurologic/Psychiatric: positive: CN's nml (2-12), Weakness, Sensory loss, Depressed mood/affect Reflexes: Bicep (R): 2+, Bicep (L): 2+ - Lab Results Fish Bones: 07/04/19 18:20 07/04/19 18:20 Other Labs: Lab Results x24hrs 07/04/19 07/04/19 07/04/19 Range/Units 22:20 22:00 18:20 WBC (4.8-10.8) x10^3/uL RBC (4.70-6.10) 10^6/uL Hgb (14.0-18.0) g/dL Hct (42.0-52.0) % MCV (80.0-94.0) fL MCH (27.0-31.0) pg MCHC (32.0-36.0) g/dL RDW (12.0-15.0) % Plt Count (130-450) 10^3/uL MPV (7.4-11.4) fL Neut # (Auto) (1.5-6.6) 10^3/uL Lymph # (Auto) (1.5-3.5) 10^3/uL [place] # (Auto) (0.0-1.0) 10^3/uL Eos # (Auto) (0.0-0.7) 10^3/uL Baso # (Auto) (0.0-0.1) 10^3/uL Absolute Nucleated RBC x10^3/uL Nucleated RBC % /100WBC ESR (0-15) mm/Hr Sodium (135-145) mmol/L Potassium (3.5-5.0) mmol/L Chloride (101-111) mmol/L Carbon Dioxide (21-32) mmol/L Anion Gap (6-13) BUN (6-20) mg/dL Creatinine (0.6-1.2) mg/dL Estimated GFR (MDRD) (>89) Glucose (70-100) mg/dL Calcium (8.5-10.3) mg/dL Total Bilirubin (0.2-1.0) mg/dL AST (10-42) IU/L ALT (10-60) IU/L Alkaline Phosphatase (42-121) IU/L Total Creatine Kinase 150 (22-269) IU/L C-Reactive Protein (0-1.0) mg/dL Total Protein (6.7-8.2) g/dL Albumin (3.2-5.5) g/dL Globulin (2.1-4.2) g/dL Albumin/Globulin Ratio (1.0-2.2) Lipase (22-51) U/L Nasal Screen MRSA (PCR) NEGATIVE (NEGATIVE) Urine Opiates Screen POSITIVE H (NEGATIVE) Ur Oxycodone Screen NEGATIVE (NEGATIVE) Urine Methadone Screen POSITIVE H (NEGATIVE) Ur Propoxyphene Screen NEGATIVE (NEGATIVE) Ur Barbiturates Screen NEGATIVE (NEGATIVE) Ur Tricyclics Screen NEGATIVE (NEGATIVE) Ur Phencyclidine Scrn NEGATIVE (NEGATIVE) Ur Amphetamine Screen POSITIVE H (NEGATIVE) U Methamphetamines Scrn POSITIVE H (NEGATIVE) U Benzodiazepines Scrn NEGATIVE (NEGATIVE) Urine Cocaine Screen NEGATIVE (NEGATIVE) U Cannabinoids Screen NEGATIVE (NEGATIVE) 07/04/19 07/04/19 07/04/19 Range/Units 18:20 18:20 18:20 WBC 6.5 (4.8-10.8) x10^3/uL RBC 4.85 (4.70-6.10) 10^6/uL Hgb 12.5 L (14.0-18.0) g/dL Hct 38.6 L (42.0-52.0) % MCV 79.6 L (80.0-94.0) fL MCH 25.8 L (27.0-31.0) pg MCHC 32.4 (32.0-36.0) g/dL RDW 15.4 H (12.0-15.0) % Plt Count 174 (130-450) 10^3/uL MPV 10.5 (7.4-11.4) fL Neut # (Auto) 4.7 (1.5-6.6) 10^3/uL Lymph # (Auto) 1.1 L (1.5-3.5) 10^3/uL [place] # (Auto) 0.6 (0.0-1.0) 10^3/uL Eos # (Auto) 0.1 (0.0-0.7) 10^3/uL Baso # (Auto) 0.0 (0.0-0.1) 10^3/uL Absolute Nucleated RBC 0.00 x10^3/uL Nucleated RBC % 0.0 /100WBC ESR 77 H (0-15) mm/Hr Sodium 137 (135-145) mmol/L Potassium 2.9 L (3.5-5.0) mmol/L Chloride 95 L (101-111) mmol/L Carbon Dioxide 33 H (21-32) mmol/L Anion Gap 9.0 (6-13) BUN 13 (6-20) mg/dL Creatinine 0.9 (0.6-1.2) mg/dL Estimated GFR (MDRD) 96 (>89) Glucose 130 H (70-100) mg/dL Calcium 8.4 L (8.5-10.3) mg/dL Total Bilirubin 0.5 (0.2-1.0) mg/dL AST 30 (10-42) IU/L ALT 31 (10-60) IU/L Alkaline Phosphatase 95 (42-121) IU/L Total Creatine Kinase (22-269) IU/L C-Reactive Protein 22.3 H (0-1.0) mg/dL Total Protein 7.5 (6.7-8.2) g/dL Albumin 3.1 L (3.2-5.5) g/dL Globulin 4.3 H (2.1-4.2) g/dL Albumin/Globulin Ratio 0.7 L (1.0-2.2) Lipase 25 (22-51) U/L Nasal Screen MRSA (PCR) (NEGATIVE) Urine Opiates Screen (NEGATIVE) Ur Oxycodone Screen (NEGATIVE) Urine Methadone Screen (NEGATIVE) Ur Propoxyphene Screen (NEGATIVE) Ur Barbiturates Screen (NEGATIVE) Ur Tricyclics Screen (NEGATIVE) Ur Phencyclidine Scrn (NEGATIVE) Ur Amphetamine Screen (NEGATIVE) U Methamphetamines Scrn (NEGATIVE) U Benzodiazepines Scrn (NEGATIVE) Urine Cocaine Screen (NEGATIVE) U Cannabinoids Screen (NEGATIVE) ABX Reporting Has patient been on IV antibiotics over the past 48 hours?: Yes Assessment/Plan - Problem List (1) Cellulitis Impression: -Left lower extremity, see chart for pictures -Continues on IV vancomycin and zosyn -Blood cultures are pending -CT of left lower extremity is negative for abscess or other complications -Wound care consulted, but cannot come until Wednesday 07/05 -Continue wound care with vasoline gauze, change daily or if soiled Contact dermatitis -Could be from a new laundry detergent -Benadryl administered and ordered prn -Encourage stopping injectables History of intravenous drug abuse -Hx of methamphetamine and heroin use -Patient reports taking methadone, but fresh track helton cover his body on all extremities -MUDDS is positive for methadone, amphetamines, methamphetamines, and opiates -Social work consult to offer resources for drug rehab -Continue scheduled daily methadone Hypokalemia -Serum K+ was 2.9, no re-check due to patient refusing labs -Routine labs, replace as needed Hypertension -B/Ps 148/81, heart rates 80s -Continue PRN labetalol prn if SBP>160 -Resume home triamterene-HCTZ -Monitor vital signs Qualifiers:
[2019-07-05] MEDS: ZINC SULFATE 220 MG CAPSULE PO SCH (16:50)
[2019-07-05] MEDS: ASCORBIC ACID CHEW 500 MG TABLET PO SCH (16:50)
--- NOTE | 2019-07-05 18:39 | PHARMACY PROGRESS NOTE ---
- Therapy Status Vancomycin regimen day #: 2 (Loading dose 2 g given in ED, Maintenance dose was started at 1.5 g IV q8h; drawing trough 07/06/2019 1130 prior to dose; will readjust dosing as clinically appropriate) Therapy status: Awaiting steady state Basis for treatment: Empirical Treatment indication: Cellulitis Trough goal: 15-20 (for uncomplicated SSTI-generally 10-15 ok) Concurrent antibiotics: zosyn - YULI Risk Risk level for Acute Kidney Injury: High Acute Kidney Injury risk factors: Piperacillin/Tozobactam, Wt >100kg or BMI >40, Goal trough >15, Chronic baseline hypertension, Total daily Vancomycin >4 grams - Monitoring and Recommendation Clinical response to treatment: I&O Previous 24 hours 07/03/19 07/04/19 07/05/19 23:59 23:59 23:59 Intake Total 692.032 9899.834 Output Total 1200 1425 Balance -322.534 9647.834 Lab Results 07/04/19 07/04/19 18:20 18:20 ESR 77 H BUN 13 Creatinine 0.9 Estimated GFR (MDRD) 96 Monitoring plan: Daily serum creatinine Areas for additional monitoring: IV to PO when appropriate, Therapy de- escalation based on culture results, Acute Kidney Injury Pharmacy recommendation: Continue current regime
[2019-07-06 03:42] LABS: BASOPHILS % (AUTO) 0.6 %; EOSINOPHILS # (AUTO) 0.2 10^3/uL (0.0-0.7); HGB - HEMOGLOBIN 11.6 g/dL (14.0-18.0); LYMPHOCYTES # (AUTO) 0.9 10^3/uL (1.5-3.5); LYMPHOCYTES % (AUTO) 18.4 %; MEAN CORPUSCULAR HEMOGLOBIN 25.6 pg (27.0-31.0); MEAN CORPUSCULAR HGB CONC 31.7 g/dL (32.0-36.0); MEAN CORPUSCULAR VOLUME 80.8 fL (80.0-94.0); MEAN PLATELET VOLUME 10.9 fL (7.4-11.4); MONOCYTES # (AUTO) 0.4 10^3/uL (0.0-1.0); MONOCYTES % (AUTO) 7.8 %; NEUTROPHILS # (AUTO) 3.2 10^3/uL (1.5-6.6); NEUTROPHILS % (AUTO) 67.4 %; PLT - PLATELET COUNT 172 10^3/uL (130-450); RED BLOOD COUNT 4.53 10^6/uL (4.70-6.10); RED CELL DISTRIBUTION WIDTH 15.7 % (12.0-15.0); WHITE BLOOD COUNT 4.8 x10^3/uL (4.8-10.8)
[2019-07-06 03:49] LABS: VANCOMYCIN,TROUGH 18.4 ug/mL (10.0-20.0)
[2019-07-06 03:56] LABS: CREATININE 0.9 mg/dL (0.6-1.2)
[2019-07-06] MEDS: VANCOMYCIN INJ 1.5 GM in SODIUM CHLORIDE 0.9% 500 ML IV SCH ×3 (04:07→20:46)
[2019-07-06] MEDS: oxyCODONE 5 MG TABLET PO PRN ×4 (06:19→23:16)
[2019-07-06] MEDS: PIPERACILLIN/TAZOBACTAM 3.375 GM in SODIUM CHLORIDE 0.9% MINIBAG 100 ML IV SCH ×2 (06:19→16:37)
[2019-07-06] MEDS: SODIUM CHLORIDE 0.9% 1,000 ML IV SCH ×2 (07:42→17:36)
[2019-07-06] MEDS: MULTIVITAMIN W/MINERALS TABLET PO SCH (07:42)
[2019-07-06] MEDS: ENOXAPARIN 40 MG/0.4 ML SYRINGE SUBQ SCH (08:08)
[2019-07-06] MEDS: ZINC SULFATE 220 MG CAPSULE PO SCH (08:09)
[2019-07-06] MEDS: ASCORBIC ACID CHEW 500 MG TABLET PO SCH (08:09)
[2019-07-06] MEDS: SODIUM CHLORIDE FLUSH 0.9% 10 ML SYRINGE IVP SCH ×2 (08:09→16:38)
[2019-07-06] MEDS: NICOTINE 14 MG PATCH TOP SCH (08:09)
[2019-07-06] MEDS: METHADONE 5 MG TABLET PO SCH (08:17)
[2019-07-06 08:57] LABS: MAGNESIUM 1.7 mg/dL (1.7-2.8)
[2019-07-06] MEDS ORDERED: POTASSIUM CHLORIDE 20 MEQ TABLET PO ONE (09:00)
--- NOTE | 2019-07-06 10:55 | PHARMACY PROGRESS NOTE ---
- Therapy Status Vancomycin regimen day #: 3 Therapy status: Trough therapeutic Basis for treatment: Empirical Treatment indication: cellulitis Trough goal: 15-20 Concurrent antibiotics: zosyn - YULI Risk Risk level for Acute Kidney Injury: High Acute Kidney Injury risk factors: Piperacillin/Tozobactam, Wt >100kg or BMI >40, Goal trough >15, Chronic baseline hypertension, Total daily Vancomycin >4 grams - Monitoring and Recommendation Clinical response to treatment: I&O Previous 24 hours 07/04/19 07/05/19 07/06/19 23:59 23:59 23:59 Intake Total 504.099 1273.834 3200 Output Total 1200 1975 1650 Balance -579.432 7661.834 1550 Lab Results 07/06/19 07/06/19 07/04/19 03:29 03:29 18:20 ESR 64 H BUN 9 13 Creatinine 0.9 0.9 Estimated GFR (MDRD) 96 96 07/04/19 18:20 ESR 77 H BUN Creatinine Estimated GFR (MDRD) Vancomycin Monitoring 07/06/19 03:29 Vancomycin Trough 18.4 Monitoring plan: Daily serum creatinine Areas for additional monitoring: IV to PO when appropriate, Therapy de- escalation based on culture results, Acute Kidney Injury Pharmacy recommendation: Continue current regime (Recommending continuation of monitoring for renal function and relevant clinical parameters to ensure for appropriate regimen)
--- NOTE | 2019-07-06 16:33 | PROVIDER PROGRESS NOTE ---
Subjective - Prog Note Date Prog Note Date: 07/06/19 - Subjective Pt reports feeling: Improved Subjective: pt report he had left lower extremity infection with ulcer wound for almost five yeas since he had IV of drug abuse and shorted at his left lower extremity and got infected. pt denies he had recently IV of drug abuse. but pt's lower extremity present multiple likely new IV short helton, and pt's UDS shows positive for meth/amph Current Medications - Current Medications Current Medications: Active Medications Acetaminophen (Tylenol) 650 mg PO Q4HR PRN PRN Reason: Pain 1 to 4 Last Admin: 07/05/19 01:32 Dose: 650 mg Ascorbic Acid (Vitamin C) 500 mg PO DAILY [facility] [place] Last Admin: 07/06/19 08:09 Dose: 500 mg Diphenhydramine HCl (Benadryl) 25 mg PO Q4HR PRN PRN Reason: Allergy Symptoms Enoxaparin Sodium (Lovenox) 40 mg SUBQ DAILY [facility] [place] Last Admin: 07/06/19 08:08 Dose: 40 mg Sodium Chloride (Normal Saline 0.9%) 1,000 mls @ 100 mls/hr IV .Q10H [facility] [place] Last Infusion: 07/06/19 14:30 Dose: 0 mls/hr Piperacillin Sod/Tazobactam (Sod 3.375 gm/ Sodium Chloride) 100 mls @ 25 mls/hr IV Q8H [facility] [place] Last Infusion: 07/06/19 10:23 Dose: Infused Vancomycin HCl 1.5 gm/ Sodium (Chloride) 500 mls @ 250 mls/hr IV Q8H [facility] [place] Last Infusion: 07/06/19 14:27 Dose: 250 mls/hr Methadone HCl () 105 mg PO DAILY [facility] [place] Last Admin: 07/06/19 08:17 Dose: 105 mg Multivitamins/Minerals (Theragran M) 1 tab PO DAILYWM [facility] [place] Last Admin: 07/06/19 07:42 Dose: 1 tab Nicotine (Nicoderm) 1 patch TOP DAILY [facility] [place] Last Admin: 07/06/19 08:09 Dose: 1 patch Oxycodone HCl (Roxicodone) 5 mg PO Q4HR PRN PRN Reason: PAIN Last Admin: 07/06/19 10:24 Dose: 5 mg Sodium Chloride (Normal Saline Flush 0.9%) 10 ml IVP PRN PRN PRN Reason: NEEDED PER PROVIDER ORDERS Sodium Chloride (Normal Saline Flush 0.9%) 10 ml IVP 0100,0900,1700 [facility] [place] Last Admin: 07/06/19 08:09 Dose: Not Given Zinc Sulfate () 220 mg PO DAILY [facility] [place] Last Admin: 07/06/19 08:09 Dose: 220 mg Objective - Vital Signs/Intake & Output Intake & Output: Intake & Output 07/03/19 07/04/19 07/05/19 07/06/19 23:59 23:59 23:59 23:59 Intake Total 336.521 6954.834 5680 Output Total 1200 1975 4850 Balance -163.298 5942.834 830 - Objective General Appearance: positive: No acute distress, Alert. negative: Lethargic Eyes Bilateral: positive: Normal inspection, PERRL, No lid inflammation ENT: positive: ENT inspection nml, Pharynx nml, No signs of dehydration. negative: Purulent nasal drainage Neck: positive: Nml inspection, Thyroid nml, No JVD, Trachea midline. negative: Thyromegaly, Lymphadenopathy (R), Lymphadenopathy (L), Stiff neck Respiratory: positive: Chest non-tender, No respiratory distress, Breath sounds nml. negative: Wheezes, Rales, Rhonchi Cardiovascular: positive: Regular rate & rhythm, No murmur, No gallop. negative: Irregularly irregular, Extrasystoles, Tachycardia, Bradycardia, JVD present, Systolic murmur, Diastolic murmur Peripheral Pulses: 2+ Radial (R), 2+ Radial (L), 2+ Dorsalis pedis (R), 2+ Dorsalis pedis (L) Abdomen: positive: Non-tender, No organomegaly, Nml bowel sounds, No distention. negative: Tenderness, Guarding, Rebound Back: positive: Nml inspection. negative: CVA tenderness (R), CVA tenderness (L) Skin: positive: Warm, Dry. negative: Cyanosis, Diaphoresis, Pallor Extremities: negative: Calf tenderness, Mai's sign/cords Neurologic/Psychiatric: positive: Oriented x3. negative: Weakness, Sensory loss, Facial droop, Slurred/abnml speech, Depressed mood/affect - Lab Results Fish Bones: 07/06/19 03:29 07/06/19 03:29 Other Labs: Lab Results x24hrs 03/03/20 03/03/20 03/03/20 Range/Units 03: 03:29 03:29 WBC (4.8-10.8) x10^3/uL RBC (4.70-6.10) 10^6/uL Hgb (14.0-18.0) g/dL Hct (42.0-52.0) % MCV (80.0-94.0) fL MCH (27.0-31.0) pg MCHC (32.0-36.0) g/dL RDW (12.0-15.0) % Plt Count (130-450) 10^3/uL MPV (7.4-11.4) fL Neut # (Auto) (1.5-6.6) 10^3/uL Lymph # (Auto) (1.5-3.5) 10^3/uL [place] # (Auto) (0.0-1.0) 10^3/uL Eos # (Auto) (0.0-0.7) 10^3/uL Baso # (Auto) (0.0-0.1) 10^3/uL Absolute Nucleated RBC x10^3/uL Nucleated RBC % /100WBC ESR (0-15) mm/Hr Sodium 140 (135-145) mmol/L Potassium 3.3 L (3.5-5.0) mmol/L Chloride 101 (101-111) mmol/L Carbon Dioxide 29 (21-32) mmol/L Anion Gap 10.0 (6-13) BUN 9 (6-20) mg/dL Creatinine 0.9 (0.6-1.2) mg/dL Estimated GFR (MDRD) 96 (>89) Glucose 108 H (70-100) mg/dL Calcium 8.0 L (8.5-10.3) mg/dL Magnesium 1.7 (1.7-2.8) mg/dL C-Reactive Protein 12.4 H (0-1.0) mg/dL Last Dose Date UNKNOWN Last Dose Time UNKNOWN Vancomycin Trough 18.4 (10.0-20.0) ug/mL 07/06/19 07/06/19 Range/Units 03:29 03:29 WBC 4.8 (4.8-10.8) x10^3/uL RBC 4.53 L (4.70-6.10) 10^6/uL Hgb 11.6 L (14.0-18.0) g/dL Hct 36.6 L (42.0-52.0) % MCV 80.8 (80.0-94.0) fL MCH 25.6 L (27.0-31.0) pg MCHC 31.7 L (32.0-36.0) g/dL RDW 15.7 H (12.0-15.0) % Plt Count 172 (130-450) 10^3/uL MPV 10.9 (7.4-11.4) fL Neut # (Auto) 3.2 (1.5-6.6) 10^3/uL Lymph # (Auto) 0.9 L (1.5-3.5) 10^3/uL [place] # (Auto) 0.4 (0.0-1.0) 10^3/uL Eos # (Auto) 0.2 (0.0-0.7) 10^3/uL Baso # (Auto) 0.0 (0.0-0.1) 10^3/uL Absolute Nucleated RBC 0.00 x10^3/uL Nucleated RBC % 0.0 /100WBC ESR 64 H (0-15) mm/Hr Sodium (135-145) mmol/L Potassium (3.5-5.0) mmol/L Chloride (101-111) mmol/L Carbon Dioxide (21-32) mmol/L Anion Gap (6-13) BUN (6-20) mg/dL Creatinine (0.6-1.2) mg/dL Estimated GFR (MDRD) (>89) Glucose (70-100) mg/dL Calcium (8.5-10.3) mg/dL Magnesium (1.7-2.8) mg/dL C-Reactive Protein (0-1.0) mg/dL Last Dose Date Last Dose Time Vancomycin Trough (10.0-20.0) ug/mL ABX Reporting Has patient been on IV antibiotics over the past 48 hours?: Yes Assessment/Plan - Problem List (1) Cellulitis Impression: improved, CRP and ESR were reduced. CT of lower extremity did not indicate abscess or other complications Continues on IV vancomycin and zosyn blood culture and wound culture are pending chronic wound pt has chronic wound for almost five years, followup by wound care and [facility] continue wound care Contact dermatitis improved. will add Bendryl PRN History of intravenous drug abuse Hx of methamphetamine and heroin use. MUDDS is positive for methadone, amphetamines, methamphetamines, and opiates consult Social work for offer resources for drug rehab advise pt quit IV of drug Hypokalemia -Serum K+ was 3.3, replace of potassium -Routine labs Hypertension stable, Resume home triamterene-HCTZ -Monitor vital signs Qualifiers: Qualified Code(s): L03.90 - Cellulitis, unspecified
[2019-07-07] MEDS: SODIUM CHLORIDE FLUSH 0.9% 10 ML SYRINGE IVP SCH ×2 (00:07→08:17)
[2019-07-07] MEDS: PIPERACILLIN/TAZOBACTAM 3.375 GM in SODIUM CHLORIDE 0.9% MINIBAG 100 ML IV SCH ×3 (00:26→08:18)
[2019-07-07] MEDS: oxyCODONE 5 MG TABLET PO PRN (03:01)
[2019-07-07] MEDS: VANCOMYCIN INJ 1.5 GM in SODIUM CHLORIDE 0.9% 500 ML IV SCH (04:35)
[2019-07-07 08:12] VITALS: BP 171/88
[2019-07-07] MEDS: SODIUM CHLORIDE 0.9% 1,000 ML IV SCH (08:13)
[2019-07-07] MEDS: METHADONE 5 MG TABLET PO SCH (08:14)
[2019-07-07] MEDS: ZINC SULFATE 220 MG CAPSULE PO SCH (08:15)
[2019-07-07] MEDS: ASCORBIC ACID CHEW 500 MG TABLET PO SCH (08:15)
[2019-07-07] MEDS: ENOXAPARIN 40 MG/0.4 ML SYRINGE SUBQ SCH (08:15)
[2019-07-07] MEDS: MULTIVITAMIN W/MINERALS TABLET PO SCH (08:15)
[2019-07-07] MEDS: NICOTINE 14 MG PATCH TOP SCH (08:16)
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
[2019-07-07] MEDS ORDERED: TRIAMT/HCTZ 37.5 MG/25 MG CAPSULE PO SCH (09:00)
== END 2019-07-07 08:50 | disposition left against medical advice (07) | DRG 603 ==
LOC: ED 17:02 → MS2 20:28
PROVIDERS: ADMIT Internal Medicine; ATTEND Nurse Practitioner Gerontology
DX: L03.116 Cellulitis of left lower limb (principal); L97.925 Non-pressure chronic ulcer of unspecified part of left lower leg with muscle involvement without evidence of necrosis; E87.6 Hypokalemia; I10 Essential (primary) hypertension; F15.11 Other stimulant abuse, in remission; F11.11 Opioid abuse, in remission; F41.9 Anxiety disorder, unspecified; F43.10 Post-traumatic stress disorder, unspecified; F40.240 Claustrophobia; T55.1X1A Toxic effect of detergents, accidental (unintentional), initial encounter; L23.5 Allergic contact dermatitis due to other chemical products; Y92.009 Unspecified place in unspecified non-institutional (private) residence as the place of occurrence of the external cause; Z87.891 Personal history of nicotine dependence
CPT/HCPCS: 36415; 73701; 80048; 80053; 80202; 80306; 82550; 83690; 83735; 85025; 85651; 86140; 87070; 87181; 87205; 87640; 96365; 99284; 99285; A9270; J1200; J1650; J3370; Q9967; 87040

== ENCOUNTER 2020-05-11 05:50 | Emergency (ER) | payer MEDICAID ==
--- NOTE | 2020-05-11 06:14 | ED Physician Documentation ---
PD HPI HEADACHE - Stated complaint Stated Complaint: HIGH BP - Chief complaint Chief Complaint: General - History obtained from History obtained from: Patient Review of Systems Constitutional: denies: Fever, Chills Nose: denies: Rhinorrhea / runny nose, Congestion Throat: denies: Sore throat Cardiac: reports: Pedal edema (chronic edema both lower legs, and with chronic ulcers both anterior legs s/p injection with [place] (illicit drug).). denies: Chest pain / pressure, Palpitations Respiratory: denies: Dyspnea, Cough GI: denies: Abdominal Pain, Nausea, Vomiting, Diarrhea Skin: reports: Lesions (ulcerations anterior lower legs, left larger than right.) Neurologic: denies: Focal weakness, Numbness PD PAST MEDICAL HISTORY - Past Medical History Cardiovascular: Hypertension Respiratory: None Neuro: None Endocrine/Autoimmune: None GI: None : None HEENT: None Psych: Anxiety, Post traumatic stress disorder, Claustrophobia Musculoskeletal: None Derm: Other - Past Surgical History Past Surgical History: No - Present Medications Home Medications: Ambulatory Orders Medication Instructions Recorded Confirmed Triamterene/Hydrochlorothiazid 1 each PO DAILY #30 capsule 07/16/18 05/11/20 [Triamterene-Hctz 37.5-25 mg Cp] Losartan [Cozaar] 50 mg PO DAILY #30 tablet 05/11/20 Methadone HCl [Dolophine HCl] 60 mg PO DAILY 05/11/20 05/11/20 Mupirocin Calcium [Mupirocin] 1 applic TP TID #30 cream..g. 05/11/20 Potassium Chloride 10 meq PO DAILY #15 tablet.er 05/11/20 Triamterene/Hdyrochlor 37.5/25 1 each PO DAILY #30 capsule 05/11/20 [Dyazide] - Allergies Allergies/Adverse Reactions: Allergies Allergy/AdvReac Type Severity Reaction Status Date / Time bacitracin AdvReac Unknown Verified 05/11/20 06:10 [From Neosporin ([id number])] neomycin AdvReac Unknown Verified 05/11/20 06:10 [From Neosporin ([id number]-[id number])] polymyxin B AdvReac Unknown Verified 05/11/20 06:10 [From Neosporin ([id number])] - Social History Does the pt smoke?: Yes Smoking Status: Former smoker Does the pt drink ETOH?: No Does the pt have substance abuse?: Yes - Immunizations Immunizations are current?: No - POLST Patient has POLST: No POLST Status: Full Code PD ED PE NORMAL - Vitals Vital signs reviewed: Yes - General General: Alert and oriented X 3, Well developed/nourished - HEENT HEENT: Pharynx benign - Neck Neck: Supple, no meningeal sign, No adenopathy - Cardiac Cardiac: RRR, No murmur - Respiratory Respiratory: Clear bilaterally - Abdomen Abdomen: Soft, Non tender - Derm Derm: Normal color, Warm and dry, Other (left lower leg with large ulceration with thickened skin at edges, no purulence. It is to fatty layer. Skin dry and with some edema on lower leg generally. Chronic stasis color changes. Right with smaller ulcer only 2 cm diameter to fatty layer. Similar chronic edema changes. ) - Neuro Neuro: Alert and oriented X 3, No motor deficit, No sensory deficit, Normal speech Results - Vitals Vitals: Vital Signs - 24 hr 05/11/20 05/11/20 05/11/20 06:00 06:27 07:35 Temperature 36.2 C L Heart Rate 103 H 85 72 Respiratory 18 14 Rate Blood Pressure 195/116 H 173/99 H 156/82 H O2 Saturation 99 99 100 Oxygen O2 Source Room air - Labs Labs: Laboratory Tests 05/11/20 05/11/20 05/11/20 06:40 06:40 06:40 WBC 5.7 RBC 4.88 Hgb 12.7 L Hct 39.6 L MCV 81.1 MCH 26.0 L MCHC 32.1 RDW 14.6 Plt Count 243 MPV 10.1 Neut # (Auto) 3.5 Lymph # (Auto) 1.6 [place] # (Auto) 0.3 Eos # (Auto) 0.2 Baso # (Auto) 0.1 Absolute Nucleated RBC 0.00 Nucleated RBC % 0.0 Sodium 140 Potassium 3.1 L Chloride 98 L Carbon Dioxide 34 H Anion Gap 8.0 BUN 11 Creatinine 0.8 Estimated GFR (MDRD) 109 Glucose 104 H Calcium 8.8 Magnesium 2.4 Total Bilirubin 0.6 AST 19 ALT 20 Alkaline Phosphatase 87 Total Protein 7.4 Albumin 4.2 Globulin 3.2 Albumin/Globulin Ratio 1.3 TSH 0.70 PD MEDICAL DECISION MAKING - ED course Complexity details: reviewed results, re-evaluated patient, considered differential (history of HTN not on meds for few months due to lack of new PMD. Chronic leg ulcers and does just shower wash and not ointments/etc. ), d/w patient Departure - Departure Disposition: 01 Home, Self Care Clinical Impression: Fluid retention in legs Chronic ulcer of leg Qualifiers: Laterality: unspecified laterality Non-pressure ulcer stage: with fat layer exposed Qualified Code(s): L97.902 - Non-pressure chronic ulcer of unspecified part of unspecified lower leg with fat layer exposed Hypertension Qualifiers: Hypertension type: unspecified Qualified Code(s): I10 - Essential (primary) hypertension Condition: Stable Record reviewed to determine appropriate education?: Yes Follow-Up: [facility] [Provider Group] [facility] [Provider Group] Prescriptions: Losartan [Cozaar] 50 mg PO DAILY #30 tablet Triamterene/Hdyrochlor 37.5/25 [Dyazide] 1 each PO DAILY #30 capsule Mupirocin Calcium [Mupirocin] 1 applic TP TID #30 cream..g. Potassium Chloride 10 meq PO DAILY #15 tablet.er Comments: Resume your triamterene/hydrochlorothiazide blood pressure medicine and I would also add losartan daily. I wrote prescriptions for these initially. [place] care [place] Try to call for follow-up appointments. For your leg wounds, clean gently with soap and water or could even use very dilute peroxide and water clean gently once or twice daily and apply mupirocin ointment lightly particularly around the edges. Compressive dressing or socks over the typical dressing of the wounds. Hopefully establishing a primary care would also allow them to refer you to the wound care clinic here at the hospital. We are unable to do that through the ER. Discharge Date/Time: 05/11/20 07:38
[2020-05-11] MEDS ORDERED: LOSARTAN 50 MG TABLET PO STA (06:26)
[2020-05-11] MEDS ORDERED: MUPIROCIN 2% OINT 1 GM TOP STA (06:26)
[2020-05-11] MEDS ORDERED: TRIAMT/HCTZ 37.5 MG/25 MG CAPSULE PO STA (06:26)
[2020-05-11 06:57] LABS: ALBUMIN 4.2 g/dL (3.2-5.5); ALBUMIN/GLOBULIN RATIO 1.3 (1.0-2.2); BILIRUBIN,TOTAL 0.6 mg/dL (0.2-1.0); CALCIUM 8.8 mg/dL (8.5-10.3); CREATININE 0.8 mg/dL (0.6-1.2); MAGNESIUM 2.4 mg/dL (1.7-2.8); TOTAL PROTEIN 7.4 g/dL (6.7-8.2)
[2020-05-11 07:00] LABS: BASOPHILS # (AUTO) 0.1 10^3/uL (0.0-0.1); BASOPHILS % (AUTO) 0.9 %; EOSINOPHILS # (AUTO) 0.2 10^3/uL (0.0-0.7); EOSINOPHILS % (AUTO) 3.2 %; HGB - HEMOGLOBIN 12.7 g/dL (14.0-18.0); LYMPHOCYTES # (AUTO) 1.6 10^3/uL (1.5-3.5); LYMPHOCYTES % (AUTO) 28.3 %; MEAN CORPUSCULAR HGB CONC 32.1 g/dL (32.0-36.0); MEAN CORPUSCULAR VOLUME 81.1 fL (80.0-94.0); MEAN PLATELET VOLUME 10.1 fL (7.4-11.4); MONOCYTES # (AUTO) 0.3 10^3/uL (0.0-1.0); MONOCYTES % (AUTO) 5.5 %; NEUTROPHILS # (AUTO) 3.5 10^3/uL (1.5-6.6); NEUTROPHILS % (AUTO) 61.9 %; PLT - PLATELET COUNT 243 10^3/uL (130-450); RED BLOOD COUNT 4.88 10^6/uL (4.70-6.10); RED CELL DISTRIBUTION WIDTH 14.6 % (12.0-15.0); WHITE BLOOD COUNT 5.7 x10^3/uL (4.8-10.8)
[2020-05-11] MEDS ORDERED: POTASSIUM CHLORIDE 20 MEQ TABLET PO ONE (07:05)
[2020-05-11 07:36] VITALS: BP 156/82
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
== END 2020-05-11 07:38 | disposition home or self-care (01) ==
LOC: ED 05:50
DX: I10 Essential (primary) hypertension (principal); Z76.0 Encounter for issue of repeat prescription; T50.2X6A Underdosing of carbonic-anhydrase inhibitors, benzothiadiazides and other diuretics, initial encounter; Z91.138 Patient's unintentional underdosing of medication regimen for other reason; R60.0 Localized edema; L97.222 Non-pressure chronic ulcer of left calf with fat layer exposed; L97.212 Non-pressure chronic ulcer of right calf with fat layer exposed; Z87.891 Personal history of nicotine dependence
CPT/HCPCS: 36415; 80053; 82088; 83735; 84244; 84443; 85025; 99283; 99284; A9270

== ENCOUNTER 2020-09-13 11:30 | Emergency (ER) | payer MEDICAID ==
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
[2020-09-13] MEDS ORDERED: KETOROLAC 30 MG/ML VIAL IVP STA (12:19)
[2020-09-13] MEDS ORDERED: VANCOMYCIN INJ 3 GM in SODIUM CHLORIDE 0.9% 500 ML IV ONE (12:19)
[2020-09-13] MEDS ORDERED: ceFAZolin 1 GM in SODIUM CHLORIDE 0.9% MINIBAG 100 ML IV STA (12:19)
[2020-09-13] MEDS ORDERED: HYDROmorphone 0.5 MG/0.5 ML SYRINGE IVP STA (12:19)
[2020-09-13] MEDS ORDERED: SODIUM CHLORIDE 0.9% 1,000 ML IV STA (12:19)
[2020-09-13 12:40] LABS: BASOPHILS % (AUTO) 0.6 %; EOSINOPHILS # (AUTO) 0.2 10^3/uL (0.0-0.7); EOSINOPHILS % (AUTO) 2.4 %; HCT - HEMATOCRIT 36.2 % (42.0-52.0); HGB - HEMOGLOBIN 11.5 g/dL (14.0-18.0); LYMPHOCYTES # (AUTO) 1.5 10^3/uL (1.5-3.5); LYMPHOCYTES % (AUTO) 22.8 %; MEAN CORPUSCULAR HGB CONC 31.8 g/dL (32.0-36.0); MEAN CORPUSCULAR VOLUME 81.9 fL (80.0-94.0); MEAN PLATELET VOLUME 9.7 fL (7.4-11.4); MONOCYTES # (AUTO) 0.4 10^3/uL (0.0-1.0); MONOCYTES % (AUTO) 5.5 %; NEUTROPHILS # (AUTO) 4.4 10^3/uL (1.5-6.6); NEUTROPHILS % (AUTO) 65.3 %; PLT - PLATELET COUNT 355 10^3/uL (130-450); RED BLOOD COUNT 4.42 10^6/uL (4.70-6.10); RED CELL DISTRIBUTION WIDTH 14.9 % (12.0-15.0); WHITE BLOOD COUNT 6.7 x10^3/uL (4.8-10.8)
[2020-09-13 12:52] LABS: ALBUMIN 3.3 g/dL (3.2-5.5); ALBUMIN/GLOBULIN RATIO 0.8 (1.0-2.2); BILIRUBIN,TOTAL 0.5 mg/dL (0.2-1.0); CALCIUM 8.7 mg/dL (8.5-10.3); CREATININE 0.9 mg/dL (0.6-1.2); POTASSIUM 3.9 mmol/L (3.5-5.0); TOTAL PROTEIN 7.7 g/dL (6.7-8.2)
[2020-09-13 13:37] LABS: B. PARAPERTUSSIS- RESP PCR PAN NOT DETECTED; B. PERTUSSIS- RESP PCR PANEL NOT DETECTED; C. PNEUMONIAE- RESP PCR PANEL NOT DETECTED; CORONAVIRUS 229E-RESP PCR NOT DETECTED; CORONAVIRUS HKU1-RESP PCR NOT DETECTED; CORONAVIRUS NL63-RESP PCR NOT DETECTED; CORONAVIRUS OC43-RESP PCR NOT DETECTED; HUMAN METAPNEUMOVIRUS NOT DETECTED; INFLUENZA A- RESP PCR PANEL NOT DETECTED; INFLUENZA B - RESP PCR PANEL NOT DETECTED; M. PNEUMONIAE- RESP PCR PANEL NOT DETECTED; PARAINFLUENZA VIRUS 1 NOT DETECTED; PARAINFLUENZA VIRUS 2 NOT DETECTED; PARAINFLUENZA VIRUS 3 NOT DETECTED; PARAINFLUENZA VIRUS 4 NOT DETECTED; RHINOVIRUS/ENTEROVIRUS NOT DETECTED; RSV- RESP PCR PANEL NOT DETECTED; SARS-CoV-2 -RESP PCR PANEL NOT DETECTED
[2020-09-13] MEDS ORDERED: HYDROmorphone 1 MG/ML CARPUJECT IVP STA ×2 (14:17→16:52)
[2020-09-13 14:53] LABS: MUDS CUTOFF CONCENTRATIONS CUTOFF CONC BELOW:
[2020-09-13 15:08] LABS: AMPHETAMINE SCREEN,URINE POSITIVE (NEGATIVE); BARBITURATE SCREEN,UR NEGATIVE (NEGATIVE); BENZODIAZEPINES SCREEN, URINE NEGATIVE (NEGATIVE); COCAINE SCREEN URINE POSITIVE (NEGATIVE); METHADONE SCREEN, URINE POSITIVE (NEGATIVE); METHAMPHETAMINES SCREEN, URINE POSITIVE (NEGATIVE); OPIATE SCREEN, URINE POSITIVE (NEGATIVE); OXYCODONE SCREEN, URINE NEGATIVE (NEGATIVE); PROPOXYPHENE SCREEN, URINE NEGATIVE (NEGATIVE); THC CANNABINOID SCREEN, URINE NEGATIVE (NEGATIVE); TRICYCLIC ANTIDEPRESSANT,URINE NEGATIVE (NEGATIVE)
[2020-09-13] MEDS ORDERED: IOPAMIDOL-300 100 ML VIAL ONE (15:51)
[2020-09-13 16:37] VITALS: BP 200/114
--- NOTE | 2020-09-13 16:41 | CT Report ---
PROCEDURE: UPPER EXTREMITY W - LT INDICATIONS: left hand and forearm infection; eval for abscess TECHNIQUE: Axial CT images of the left upper extremity from the level of the distal humerus to the le tyler through the hand, obtained after IV contrast ministration. Coronal and sagittal reformatted image s were generated and reviewed. COMPARISON: None. FINDINGS: Throughout the visualized left upper extremity there is circumferential soft tissue edema with reticu lar fat stranding throughout the subcutaneous as well as confluent fluid in the soft tissues represen ting phlegmonous change in the setting of cellulitis. There is no organized or rim-enhancing fluid co llection identified. Of note, the fluid and inflammatory changes involve the perimuscular fascia. The re is no subcutaneous emphysema. No radiopaque foreign body identified. No destructive lytic changes of the visualized bones. IMPRESSION: Diffuse inflammatory and phlegmonous changes in the soft tissues and fascia of the visualized left up per extremity. Findings are consistent with cellulitis and/or fasciitis. Necrotizing fasciitis would need clinical exclusion. No evidence of abscess. No subcutaneous cutaneous emphysema or radiopaque foreign body identified. No destructive osseous changes to suggest osteomyelitis. Reviewed by: Nick Casey MD on 09/13/2020 4:39 PM PDT Approved by: Nick Casey MD on 09/13/2020 4:39 PM PDT Station ID: [id number]
[2020-09-13] MEDS ORDERED: METHADONE 5 MG TABLET PO STA (16:48)
--- NOTE | 2020-09-13 16:53 | ED Physician Documentation ---
ED Addendum - Addendum Addendum: 09/13/20 16:[address] Woo. This is a 35-year-old gentleman with remote history of IV drug use but he says not recent, but admits to smoking methamphetamines and cocaine more recently who presents with infection of the left upper extremity. On signout the report was to check results of CT scanning and if it showed an abscess he would need specific therapy for that, otherwise could be discharged on oral antibiotics. CT read without abscess but some concern for fasciitis. Patient was reexamined. He does not seem to have pain out of proportion to exam. He has decent range of motion at both the wrist and the elbow. He certainly does have a lot of swelling and some weeping especially to the dorsum of the left hand and forearm. His white counts, blood glucose, sodium, and lactate are normal. At this juncture I think necrotizing fasciitis is not a significant concern but have asked him to return tomorrow for scheduled recheck and to return immediately if progressive symptoms occur.
[2020-09-13] MEDS ORDERED: METHADONE 50 MG/5 ML ORAL SYRINGE PO STA (16:55)
[2020-09-13] MEDS ORDERED: IOPAMIDOL-300 100 ML VIAL IVP ONE (18:48)
== END 2020-09-13 17:55 | disposition home or self-care (01) ==
LOC: ED 11:30
DX: L01.03 Bullous impetigo (principal); B95.8 Unspecified staphylococcus as the cause of diseases classified elsewhere; S50.812A Abrasion of left forearm, initial encounter; X58.XXXA Exposure to other specified factors, initial encounter; Z20.822 Contact with and (suspected) exposure to COVID-19; I10 Essential (primary) hypertension; Z87.891 Personal history of nicotine dependence
CPT/HCPCS: 0202U; 36415; 73201; 80053; 80306; 83605; 83690; 85025; 87040; 87070; 87205; 96361; 96365; 96366; 96375; 96376; 99284; J1170; J3370; Q9967

== ENCOUNTER 2020-11-13 20:02 | Emergency (ER) | payer MEDICAID ==
[2020-11-13 20:15] VITALS: BP 173/112
--- NOTE | 2020-11-13 20:21 | ED Physician Documentation ---
History of Present Illness - Stated complaint Stated Complaint: PAPERWORK - Chief complaint Chief Complaint: General - History obtained from History obtained from: Patient - History of Present Illness Timing: Other (no c/o at this time) - Additonal information Additional information: patient was T+R from this ED 09/13/20 for RUE skin infection (cellulitis, impet igo were suspected diagnoses). He presents to ED at this time with a form requesting I fill it out so that he can get [place]. He says he was given this form a few weeks ago but hadnt asked a medical professional to fill it out before tonight because I was busy (per patient). He is asymptomatic. He says he went for his scheduled dose of methadone today and he was refused because he had not yet had the form filled out which indicates he has been tested for MRSA with negative result. Review of Systems Constitutional: denies: Fever Skin: denies: Rash PD PAST MEDICAL HISTORY - Past Medical History Cardiovascular: Hypertension Respiratory: None Neuro: None Endocrine/Autoimmune: None GI: None : None HEENT: None Psych: Anxiety, Post traumatic stress disorder, Claustrophobia Musculoskeletal: None Derm: Other - Past Surgical History Past Surgical History: No - Present Medications Home Medications: Ambulatory Orders Medication Instructions Recorded Confirmed Triamterene/Hydrochlorothiazid 1 each PO DAILY #30 capsule 07/16/18 09/13/20 [Triamterene-Hctz 37.5-25 mg Cp] Losartan [Cozaar] 50 mg PO DAILY #30 tablet 05/11/20 09/13/20 Methadone HCl [Dolophine HCl] 109 mg PO DAILY 05/11/20 09/13/20 Potassium Chloride 10 meq PO DAILY #15 tablet.er 05/11/20 09/13/20 Doxycycline Monohydrate 150 mg PO BID #14 cap 09/13/20 Ibuprofen [Motrin] 600 mg PO TID PRN #25 tab 09/13/20 Mupirocin Calcium [Mupirocin] 1 applic TP TID #15 gm 09/13/20 - Allergies Allergies/Adverse Reactions: Allergies Allergy/AdvReac Type Severity Reaction Status Date / Time bacitracin AdvReac Unknown Verified 09/13/20 11:33 [From Neosporin ([id number])] neomycin AdvReac Unknown Verified 09/13/20 11:33 [From Neosporin ([id number])] polymyxin B AdvReac Unknown Verified 09/13/20 11:33 [From Neosporin (eos-[id number])] - Social History Does the pt smoke?: Yes Smoking Status: Former smoker Does the pt drink ETOH?: No Does the pt have substance abuse?: Yes - Immunizations Immunizations are current?: No - POLST Patient has POLST: No POLST Status: Full Code PD ED PE NORMAL - Vitals Vital signs reviewed: Yes - General General: Alert and oriented X 3, No acute distress, Well developed/nourished - Cardiac Cardiac: RRR, No murmur - Respiratory Respiratory: No respiratory distress, Clear bilaterally - Derm Derm: Normal color, Warm and dry, No rash Results - Vitals Vitals: Oxygen O2 Source Room air - Labs Labs: Laboratory Tests 11/13/20 21:09 Nasal Screen MRSA (PCR) NEGATIVE PD MEDICAL DECISION MAKING - ED course Complexity details: reviewed old records, reviewed results, re-evaluated patient, considered differential, d/w patient ED course: Patient presents with paperwork needing to be filled out indicating he is MRSA negative for his methadone clinic, and he requests a dose of his methadone that he did not receive this morning because he has not made any attempts to have this paperwork filled out after weeks of being told to do so by the clinic. I explained to him that this is inappropriate use of the emergency department and that I do not see a more recent MRSA test than July of 2019. He repeatedly insists he had a MRSA test 09/13/20, but I explain to him that all I can see in [facility] is a respiratory PCR panel, which includes COVID and several other contagions but not MRSA. He asks that I fill the form out according to the most recent MRSA test which I obliged but I was not willing to dose his methadone. I ordered MRSA testing prior to d/c in case the clinic needed a more recent result than July 2019, but I again instructed him to establish with an outpatient provider for such routine (non emergency) matters. Departure - Departure Disposition: 01 Home, Self Care Clinical Impression: Well adult Condition: Good Instructions: ED Screening Exam Medical Nonurgent Follow-Up: Oli Canales MD [Credentialed Staff Provider] - Comments: In the future, you should use the emergency department for emergency medical problems. Paperwork that could have been filled out at any time over the past few weeks could have been managed in the outpatient setting with your primary care provider. If you do not have a primary care provider, contact your insurance provider to be assigned one. If you do not have insurance, you need to start the application process for state insurance such as Medicaid. A MRSA swab is being performed tonight in case the methadone clinic does not accept the swab result from July of last year. The result will typically take 1-2 days. You can get this result yourself on your phone or tablet/device by signing up for the [employer] website associated with the [facility] website. Included in these discharge instructions is the name and contact information for Dr. Canales, who is taking call this week for uninsured patients. His office is another point of contact for your nonemergency medical concerns. Discharge Date/Time: 11/13/20 21:14
== END 2020-11-13 21:14 | disposition home or self-care (01) ==
LOC: ED 20:02
DX: Z02.89 Encounter for other administrative examinations (principal); Z11.2 Encounter for screening for other bacterial diseases
CPT/HCPCS: 87640; 99281; 99283

== ENCOUNTER 2021-02-02 13:42 | Emergency (ER) | payer MEDICAID ==
[2021-02-02] MEDS ORDERED: TRIAMT/HCTZ 37.5 MG/25 MG CAPSULE PO STA (14:07)
[2021-02-02] MEDS ORDERED: METHADONE 5 MG TABLET PO STA (14:09)
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
--- NOTE | 2021-02-02 14:23 | XRAY Report ---
PROCEDURE: Chest 1 View X-Ray INDICATIONS: chest pain COMMENTS: Chest pain/ Pt states elivated HR PRIORS: none TECHNIQUE: One view of the chest was acquired. COMPARISON: None FINDINGS: Surgical changes and devices: None. Lungs and pleura: No pleural effusions or pneumothorax. Lungs are clear. Mediastinum: Mediastinal contours appear normal. Heart size is normal. Bones and chest wall: No suspicious bony lesions. Overlying soft tissues appear unremarkable. IMPRESSION: No acute cardiopulmonary abnormality. Reviewed by: Efraín Madera on 02/02/2021 2:21 PM PDT Approved by: Efraín Madera on 02/02/2021 2:21 PM PDT Station ID: [id number]
[2021-02-02 15:18] LABS: BASOPHILS % (AUTO) 0.7 %; EOSINOPHILS # (AUTO) 0.2 10^3/uL (0.0-0.7); HCT - HEMATOCRIT 40.8 % (42.0-52.0); LYMPHOCYTES # (AUTO) 1.5 10^3/uL (1.5-3.5); LYMPHOCYTES % (AUTO) 26.9 %; MEAN CORPUSCULAR HEMOGLOBIN 25.3 pg (27.0-31.0); MEAN CORPUSCULAR HGB CONC 31.9 g/dL (32.0-36.0); MEAN CORPUSCULAR VOLUME 79.5 fL (80.0-94.0); MEAN PLATELET VOLUME 10.6 fL (7.4-11.4); MONOCYTES # (AUTO) 0.4 10^3/uL (0.0-1.0); MONOCYTES % (AUTO) 6.6 %; NEUTROPHILS # (AUTO) 3.5 10^3/uL (1.5-6.6); NEUTROPHILS % (AUTO) 61.6 %; PLT - PLATELET COUNT 254 10^3/uL (130-450); RED BLOOD COUNT 5.13 10^6/uL (4.70-6.10); RED CELL DISTRIBUTION WIDTH 14.3 % (12.0-15.0); WHITE BLOOD COUNT 5.7 x10^3/uL (4.8-10.8)
[2021-02-02 15:21] LABS: BILIRUBIN,TOTAL 0.5 mg/dL (0.2-1.0); CALCIUM 8.8 mg/dL (8.5-10.3); CREATININE 0.9 mg/dL (0.6-1.2); POTASSIUM 3.5 mmol/L (3.5-5.0); TOTAL PROTEIN 7.9 g/dL (6.7-8.2)
[2021-02-02 16:24] VITALS: BP 163/105
== END 2021-02-02 16:23 | disposition home or self-care (01) ==
LOC: ED 13:42
DX: I10 Essential (primary) hypertension (principal); T50.2X6A Underdosing of carbonic-anhydrase inhibitors, benzothiadiazides and other diuretics, initial encounter; Z91.128 Patient's intentional underdosing of medication regimen for other reason; F15.10 Other stimulant abuse, uncomplicated; F17.200 Nicotine dependence, unspecified, uncomplicated; L97.219 Non-pressure chronic ulcer of right calf with unspecified severity
CPT/HCPCS: 36415; 71045; 80053; 83690; 84484; 85025; 93005; 99283; 99284; A9270

== ENCOUNTER 2023-01-01 23:15 | Emergency (ER) | payer MEDICAID ==
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
[2023-01-02] MEDS ORDERED: DOXYCYCLINE 100 MG TABLET PO STA (04:28)
[2023-01-02] MEDS ORDERED: LIDOCAINE 1% 2 ML VIAL MC ONE (04:28)
[2023-01-02] MEDS ORDERED: cefTRIAXone 1 GM VIAL IM STA (04:28)
--- NOTE | 2023-01-02 08:58 | CT Report ---
PROCEDURE: LOWER EXTREMITY WO - LT INDICATIONS: left thigh soft tissue infection TECHNIQUE: Noncontrast 3-mm axial sections acquired from the distal tibial shaft to the talar dome, with coronal and sagittal reformats. For radiation dose reduction, the following was used: automated exposure c ontrol, adjustment of mA and/or kV according to patient size. COMPARISON: None. FINDINGS: Image quality: Good. Bones: No suspicious osseous lesion. No fracture or dislocation. Soft tissues: Diffuse subcutaneous edema. Skin thickening at the lateral aspect of the knee and post erior thigh. Popliteal fossa node measuring 1.1 cm, (4/131). Trace knee joint effusion. No intramuscu lar fluid collection. Small volume of ill-defined free fluid deep to the fascia at the posterior late ral aspect of the thigh, (4/80). Impression: No abscess identified. Small volume of ill-defined free fluid deep to the fascia at the posterior lateral aspect of the thig h. Diffuse subcutaneous edema. Enlarged popliteal fossa lymph node measuring 1.1 cm. Suspect reactive etiology. This report is concordant with the overnight preliminary interpretation. Reviewed by: Luis Felipe Jansen MD on 01/02/2023 8:57 AM PDT Approved by: Luis Felipe Jansen MD on 01/02/2023 8:57 AM PDT Station ID: [id number]
[2023-01-02 11:02] VITALS: BP 141/82; O2SAT 99
== END 2023-01-02 06:17 | disposition home or self-care (01) ==
LOC: ED 23:15
DX: L03.116 Cellulitis of left lower limb (principal); I10 Essential (primary) hypertension; F17.200 Nicotine dependence, unspecified, uncomplicated; Z79.899 Other long term (current) drug therapy
CPT/HCPCS: 73700; 96372; 99283; 99284; A9270; 80048; 85025